=== PATIENT | female | born 1995 | race Caucasian/White ===

== ENCOUNTER 2016-12-19 22:23 | Outpatient (CLI) | payer OTHER ==
[~2016-12-19 22:23] MED LIST: AMOXICILLIN500 MG PO; ATARAX,VISTARIL25 MG PO; BENADRYL50 MG PO; DULCOLAX5 MG PO; IBUPROFEN200 M1 PO; INTROVALE1 EACH PO; MACROBID100 MG PO; MECLIZINE HCL25 MG PO; MICROGESTIN1 EACH PO; MOTRIN600 MG PO; NAPROSYN500 MG PO; NOHOMEMEDS; OMEPRAZOLE20 MG PO; PANTOPRAZOLE SO40 MG PO; PEPCID20 MG PO; PONSTEL250 MG PO; PREDNISONE10 MG PO; PROMETHAZINE HC25 M1 PO; PROZAC40 MG PO; TORADOL10 MG PO; TRAMADOL HCL50 MG PO; TYLENOL EXTRA500 MG PO; ULTRACET1 TABLET PO; ULTRAM50 MG PO; ZANTAC150 MG PO; ZOFRAN4 MG PO; no home
[2016-12-19 22:41] VITALS: BP 108/58
[2016-12-19 23:10] LABS: EOSINOPHIL COUNT 0.2 K/uL (0-0.3); HEMATOCRIT 33.1 % (36.0-46.0); IMMATURE GRANULOCYTE (%) 1.4 % (0.0-0.7); IMMATURE GRANULOCYTE COUNT 1.7 K/uL; LYMPHOCYTE COUNT 2.7 K/uL (1.0-2.8); MCH 28.9 PG (29.0-34.0); MCHC 32.9 G/DL (30.0-36.0); MCV 87.8 FL (83-99); MEAN PLAT.VOLUME 11.3 uM^3 (9.5-12.4); MONOCYTE (%) 7.4 % (3-12); MONOCYTE COUNT 0.9 K/uL (0-0.8); NEUTROPHIL (%) 67.4 % (45-76); NEUTROPHIL COUNT 8.3 K/uL (1.8-6.4); PLATELET COUNT 231 K/uL (156-360); RBC DIS.WIDTH-SD 40.4 % (39-53); RED BLOOD COUNT 3.77 M/uL (3.80-5.20); WHITE BLOOD COUNT 12.3 K/uL (4.1-10.2)
[2016-12-19 23:21] LABS: ADD MIUA? YES; BILIRUBIN NEGATIVE; BLOOD NEGATIVE; COLOR YELLOW ((YELLOW)); GLUCOSE (STRIP) NEGATIVE; KETONES NEGATIVE; LEUKOCYTES TRACE; NITRITE NEGATIVE; PROTEIN (STRIP) NEGATIVE; SPECIFIC GRAVITY 1.008 (1.000-1.030); UROBILINOGEN 0.2 MG/DL (0.2-1.0)
[2016-12-19 23:25] LABS: CHLORIDE 106 mEq/L (99-109); POTASSIUM 3.5 mEq/L (3.7-5.4); SODIUM 137 mEq/L (136-147)
[2016-12-19 23:27] LABS: GLUCOSE 87 mg/dL (70-99)
[2016-12-19 23:28] LABS: ANION GAP 7 MEQ/L (2-14)
[2016-12-19 23:29] LABS: TOTAL BILIRUBIN 0.3 mg/dL (0.0-1.0)
[2016-12-19 23:31] LABS: ALKALINE PHOSPHATASE 58 IU/L (3-129); GFR ESTIMATE (CALCULATED) > 59 mL/min/
[2016-12-19 23:32] LABS: UREA NITROGEN (BUN) 6 mg/dL (9-23)
[2016-12-19 23:38] LABS: AMPHETAMINES QUANT VALUE 0 NG/ML; BARBITUATES QUANT VALUE 0 NG/ML; BENZODIAZEPINES QUANT VALUE 0 NG/ML; BENZODIAZEPINES, URINE SCREEN Negative (200 ng/mL); MARIJUANA QUANT VALUE 0 NG/ML; OPIATES QUANTITATIVE VALUE 0 NG/ML; PHENCYCLIDINE QUANT VALUE 0 NG/ML
[2016-12-19 23:44] LABS: AMORPHOUS PHOSPHATE CRYSTALS 3+; BACTERIA 2+ /HPF; CASTS NONE SEEN /LPF; CRYSTALS PRESENT; EPITHELIAL CELLS RARE /HPF; MUCUS NONE SEEN /LPF; RED BLOOD CELLS NONE SEEN /HPF (0-5); WHITE BLOOD CELLS NONE SEEN /HPF (0-5)
[2016-12-19] MEDS ORDERED: REGLAN10 MG PO (23:45)
[2016-12-20 06:27] LABS: CANDIDA DNA PROBE NEGATIVE; GARDNERELLA DNA PROBE NEGATIVE; INTERNAL CONTROL VALID? YES
[2016-12-22 12:42] LABS: CHLAMYDIA TRACHOMATIS NEGATIVE; NEISSERIA GONORRHOEAE NEGATIVE
== END 2016-12-20 00:25 | disposition home or self-care (01) ==
LOC: LDRP-OP 22:23 → 2WEST 22:24 → LDRP-OP 05-11 14:53
PROVIDERS: Advanced Practice Midwife; Obstetrics & Gynecology
DX: R10.9 Unspecified abdominal pain (principal); O99.89 Other specified diseases and conditions complicating pregnancy, childbirth and the puerperium; Z3A.24 24 weeks gestation of pregnancy
CPT/HCPCS: 59025; 80053; 81003; 85025; 87086; 87480; 87491; 87510; 87591; 87660; G0378

== ENCOUNTER → 2017-01-15 | Outpatient (CLI) | payer OTHER ==
[~2017-01-15] VITALS: Ht 167.6 cm; Wt 65.0 kg
[~2017-01-15] MED LIST changes: +FLINTSTONES CO1 EAC1 PO; +REGLAN10 MG PO
[2017-01-15 15:24] VITALS: BP 110/59
== END | disposition home or self-care (01) ==
LOC: IVINF 15:20
DX: O36.0990 Maternal care for other rhesus isoimmunization, unspecified trimester, not applicable or unspecified (principal); Z3A.00 Weeks of gestation of pregnancy not specified
CPT/HCPCS: 96372; J2790

== ENCOUNTER 2017-03-05 20:23 | Outpatient (CLI) | payer OTHER ==
[2017-03-05 20:45] VITALS: BP 126/58
[2017-03-05 22:02] LABS: ADD MIUA? NO; BILIRUBIN NEGATIVE; BLOOD NEGATIVE; COLOR STRAW ((YELLOW)); GLUCOSE (STRIP) NEGATIVE; KETONES NEGATIVE; LEUKOCYTES NEGATIVE; NITRITE NEGATIVE; PROTEIN (STRIP) NEGATIVE; SPECIFIC GRAVITY 1.003 (1.000-1.030); UCUL ADDED? NO; UROBILINOGEN 0.2 MG/DL (0.2-1.0)
[2017-03-05 22:17] VITALS: BP 110/67
== END 2017-03-05 22:30 | disposition home or self-care (01) ==
LOC: LDRP-OP → 2WEST 20:24 → LDRP-OP 05-11 00:53
PROVIDERS: Advanced Practice Midwife
DX: O47.03 False labor before 37 completed weeks of gestation, third trimester (principal); Z3A.34 34 weeks gestation of pregnancy
CPT/HCPCS: 59025; 81003; 87086; G0378

== ENCOUNTER 2017-03-07 16:06 | Outpatient (CLI) | payer OTHER ==
[~2017-03-07] VITALS: Ht 167.6 cm; Wt 70.3 kg
[2017-03-07] MEDS ORDERED: IRON325 MG PO (16:23)
[2017-03-07] MEDS ORDERED: TYLENOL REGULA325 MG PO (16:26)
[2017-03-07 16:29] VITALS: BP 114/62
[2017-03-07 17:19] VITALS: BP 112/62
[2017-03-07 19:03] VITALS: BP 116/63
[2017-03-07 20:23] LABS: CANDIDA DNA PROBE NEGATIVE; GARDNERELLA DNA PROBE NEGATIVE; INTERNAL CONTROL VALID? YES
== END 2017-03-07 20:27 | disposition home or self-care (01) ==
LOC: LDRP-OP 16:06 → 2WEST 16:07 → LDRP-OP 05-11 23:05
PROVIDERS: Advanced Practice Midwife
DX: O47.03 False labor before 37 completed weeks of gestation, third trimester (principal); Z3A.35 35 weeks gestation of pregnancy
CPT/HCPCS: 59025; 87081; 87086; 87480; 87510; 87660; G0378; J7120

== ENCOUNTER 2017-03-16 14:40 | Outpatient (CLI) | payer OTHER ==
[2017-03-16] VITALS (8 sets, daily range): BP systolic 102–119; BP diastolic 55–68
[~2017-03-16] VITALS: Ht 170.2 cm; Wt 71.2 kg
[~2017-03-16 14:40] MED LIST changes: +IRON325 MG PO; +TYLENOL REGULA325 MG PO
[2017-03-16 19:47] LABS: BASOPHIL COUNT 0.1 K/uL (0-0.1); EOSINOPHIL (%) 1.7 % (0-5); EOSINOPHIL COUNT 0.2 K/uL (0-0.3); HEMATOCRIT 32.1 % (36.0-46.0); IMMATURE GRANULOCYTE (%) 4.6 % (0.0-0.7); IMMATURE GRANULOCYTE COUNT 0.5 K/uL; INSTRUMENT ABS NEUTROPHIL CT 7.3 K/uL; LYMPHOCYTE COUNT 2.3 K/uL (1.0-2.8); MCH 28.2 PG (29.0-34.0); MCHC 32.1 G/DL (30.0-36.0); MCV 87.9 FL (83-99); MEAN PLAT.VOLUME 11.2 uM^3 (9.5-12.4); MONOCYTE (%) 7.2 % (3-12); MONOCYTE COUNT 0.8 K/uL (0-0.8); NEUTROPHIL (%) 65.3 % (45-76); NEUTROPHIL COUNT 7.3 K/uL (1.8-6.4); PLATELET COUNT 234 K/uL (156-360); RBC DIS.WIDTH-SD 41.1 % (39-53); RED BLOOD COUNT 3.65 M/uL (3.80-5.20); WHITE BLOOD COUNT 11.2 K/uL (4.1-10.2)
[2017-03-17] VITALS (15 sets, daily range): BP systolic 85–123; BP diastolic 50–67
[2017-03-17 12:23] LABS: HEMATOCRIT 32.7 % (36.0-46.0); MCH 28.1 PG (29.0-34.0); MCHC 31.5 G/DL (30.0-36.0); MCV 89.3 FL (83-99); MEAN PLAT.VOLUME 11.2 uM^3 (9.5-12.4); PLATELET COUNT 217 K/uL (156-360); RBC DIS.WIDTH-SD 42.5 % (39-53); RED BLOOD COUNT 3.66 M/uL (3.80-5.20); WHITE BLOOD COUNT 12.8 K/uL (4.1-10.2)
[2017-03-17 12:26] LABS: UR CREATININE CONCENTRATION 52.3 MG/DL
[2017-03-17 12:35] LABS: ALKALINE PHOSPHATASE 103 IU/L (3-129); ANION GAP 12 MEQ/L (2-14); CHLORIDE 104 MEQ/L (99-109); GFR ESTIMATE (CALCULATED) > 59 mL/min/; GLUCOSE 131 mg/dL (70-99); POTASSIUM 3.7 MEQ/L (3.7-5.4); SAMPLE HEMOLYSIS CHECK 0; SAMPLE ICTERIC CHECK 0; SAMPLE LIPEMIA CHECK 0; SODIUM 138 MEQ/L (136-147); TOTAL BILIRUBIN 0.4 MG/DL (0.0-1.0); UREA NITROGEN (BUN) 8 mg/dL (9-23)
== END 2017-03-17 16:15 | disposition home or self-care (01) ==
LOC: LDRP-OP 14:40 → 2WEST 14:45 → LDRP-OP 05-11 21:09
PROVIDERS: Advanced Practice Midwife; Obstetrics & Gynecology
DX: O60.03 Preterm labor without delivery, third trimester (principal); Z3A.33 33 weeks gestation of pregnancy
CPT/HCPCS: 59025; 80053; 82570; 84156; 85025; 85027; 87086; G0378; J0595; J0702; J7120; Q0169

== ENCOUNTER 2017-03-18 08:08 | Inpatient (IN) | payer OTHER ==
[2017-03-18] VITALS (11 sets, daily range): BP systolic 105–127; BP diastolic 57–66
[~2017-03-18] VITALS: Ht 170.2 cm; Wt 71.6 kg
[2017-03-18 12:48] LABS: EOSINOPHIL (%) 0.3 % (0-5); HEMATOCRIT 31.6 % (36.0-46.0); IMMATURE GRANULOCYTE (%) 4.2 % (0.0-0.7); IMMATURE GRANULOCYTE COUNT 0.6 K/uL; INSTRUMENT ABS NEUTROPHIL CT 12.2 K/uL; LYMPHOCYTE COUNT 1.5 K/uL (1.0-2.8); MCH 28.5 PG (29.0-34.0); MEAN PLAT.VOLUME 11.7 uM^3 (9.5-12.4); MONOCYTE (%) 4.4 % (3-12); MONOCYTE COUNT 0.7 K/uL (0-0.8); NEUTROPHIL (%) 81.1 % (45-76); NEUTROPHIL COUNT 12.2 K/uL (1.8-6.4); PLATELET COUNT 230 K/uL (156-360); RBC DIS.WIDTH-CV 13.2 % (11.8-14.6); RBC DIS.WIDTH-SD 43.1 % (39-53); RED BLOOD COUNT 3.55 M/uL (3.80-5.20); WHITE BLOOD COUNT 15.1 K/uL (4.1-10.2)
[2017-03-19 07:14] LABS: EOSINOPHIL (%) 0.2 % (0-5); HEMATOCRIT 30.3 % (36.0-46.0); IMMATURE GRANULOCYTE COUNT 0.6 K/uL; INSTRUMENT ABS NEUTROPHIL CT 15.1 K/uL; LYMPHOCYTE COUNT 2.6 K/uL (1.0-2.8); MCH 28.2 PG (29.0-34.0); MCV 88.1 FL (83-99); MEAN PLAT.VOLUME 11.3 uM^3 (9.5-12.4); MONOCYTE (%) 7.2 % (3-12); MONOCYTE COUNT 1.4 K/uL (0-0.8); NEUTROPHIL (%) 76.1 % (45-76); NEUTROPHIL COUNT 15.1 K/uL (1.8-6.4); PLATELET COUNT 213 K/uL (156-360); RBC DIS.WIDTH-CV 13.2 % (11.8-14.6); RBC DIS.WIDTH-SD 42.1 % (39-53); RED BLOOD COUNT 3.44 M/uL (3.80-5.20)
[2017-03-19 07:24] LABS: WHITE BLOOD COUNT 19.8 K/uL (4.1-10.2)
[2017-03-19 07:33] VITALS: BP 103/65
[2017-03-19 15:55] VITALS: BP 102/56
[2017-03-20 07:35] VITALS: BP 111/62
== END 2017-03-20 13:00 | disposition home or self-care (01) | DRG 775 ==
LOC: LDRP-OP 08:08 → 2WEST 08:09 → LDRP-OP 05-11 23:48
PROVIDERS: Advanced Practice Midwife; Obstetrics & Gynecology
DX: O71.4 Obstetric high vaginal laceration alone (principal); O60.23X1 Term delivery with preterm labor, third trimester, fetus 1; Z3A.34 34 weeks gestation of pregnancy; Z37.0 Single live birth
CPT/HCPCS: 59025; 80053; 82570; 83030; 84156; 85025; 85027; 86870; 86900; 86901; 86905; 86920; 87086; G0378; J0595; J0702; J2790; J7120; Q0169